=== PATIENT | male | born 2000 | race Caucasian/White ===

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

== ENCOUNTER → 2021-04-14 17:28 | Outpatient (CLI) | payer OTHER, SELFPAY ==
[2021-04-17 00:04] LABS: Neisseria gonorrhoeae, NAA Negative (Negative)
== END ==
PROVIDERS: Visit Provider Nurse Practitioner Family
DX: R36.9 Urethral discharge, unspecified (principal); N48.89 Other specified disorders of penis
CPT/HCPCS: 87491; 87591

== ENCOUNTER → 2021-09-18 13:08 | Outpatient (CLI) | payer OTHER, SELFPAY | PROVIDERS: Visit Provider Nurse Practitioner | DX: Z20.822 Contact with and (suspected) exposure to COVID-19 (principal) | CPT/HCPCS: C9803; U0003; U0005 ==

== ENCOUNTER 2021-09-23 11:42 | Emergency (ER) | payer SELFPAY ==
[2021-09-23 11:43] VITALS: BP 145/86; PULSE 80; RESP 16; TEMP 36.8; O2SAT 99; BMI 25.0
--- NOTE | 2021-09-23 11:48 | HMH.EDGENADL ---
ED Disposition Clinical Impression: Congestion of right ear Disposition: Home, Self-Care Condition on Discharge: Good Additional Instructions: Nasacort and pseudoephedrine as prescribed. Follow-up with your nose and throat, call for appointment. Prescriptions: Fluticasone Propionate [Flonase 50mcg nasal spray 16gm] 1 spr NS DAILY #1 unspec Transmission Status: Pending to [facility] # Pseudoephedrine HCl [Pseudoephedrine ER] 120 mg PO DAILY #10 tab Transmission Status: Pending to [facility] # Referrals: Jose Brown MD [Primary Care Provider] - Jamey Livingston MD [Physician] - - Critical Care Critical Care Time: No Attestation: On 09/23/21, the high probability of a clinically significant, sudden or life threatening deterioration of the following system(s) required my full and direct attention, intervention and personal management. The time I documented below is in addition to time spent performing reported procedures but includes the following listed in this critical care notation. Medical Decision Making - Medical Records Medical records reviewed: Yes: I reviewed the patient's medical records. MR Comment: Covid testing done on 09/18/2021 was negative, patient informed. - Garrett Inquiry Pt receiving controlled substance: No Vital Signs: 09/23/21 11:43 Temperature 98.2 F Temperature Source Oral Pulse Rate [Left Radial] 80 Respiratory Rate 16 Blood Pressure [Right Arm] 145/86 H Blood Pressure Mean [Right Arm] 105 02 Sat by Pulse Oximetry 99 Oxygen Delivery Method Room Air General Adult HPI - General Stated complaint: ear pain, muffled sound Time Seen by Provider: 09/23/21 11:48 - History of Present Illness HPI narrative: 1 week history of muffled hearing and pressure sensation in his right ear. States that he has had this in the past and seen his primary care provider and had to have his ear canal clogged out. He does not know whether that is the problem now. Denies rhinorrhea. He does have some postnasal drip. He says that when he auto equalizes the pressure in his right ear he can feel a pop but it does not seem to help. No fever. Also states that he had a Covid test done here a few days ago because of Covid exposure and does not know the result. - Related Data Home Medications Medication Instructions Recorded Confirmed Loratadine/Pseudoephedrine 1 each PO DAILY 07/31/20 07/31/20 [Loratadine-D 24Hr Tablet] Previous Rx's Medication Instructions Recorded Fluticasone Propionate [Flonase 1 spr NS DAILY #1 unspec 09/23/21 50mcg nasal spray 16gm] Pseudoephedrine HCl 120 mg PO DAILY #10 tab 09/23/21 [Pseudoephedrine ER] Allergies Allergy/AdvReac Type Severity Reaction Status Date / Time POISON ALPHONSO EXTRACT, ALUM Allergy Mild I-RASH Uncoded 10/29/19 14:59 [facility]AT [facility] History - Hepatitis A Screen Attestation statement:: This patient has been screened for Hepatitis A risk factors. I have reviewed the patient's past medical history: Yes Medical History: Denies:: Cancer, Diabetes Mellitus Type 1, Diabetes Mellitus Type 2, Internal Pacemaker, MRSA Other Surgeries: Yes: No Previous Surgery. No: Pacemaker Amputation: No Fractures: No - Social History Smoking Status: Never smoker Tobacco Type: cigarettes # Packs/Day (cigarettes): 1 Alcohol Intake: never Substance Use Type: denies use Occupational Status: employed Family Hx:: No significant family history ROS Obtained: Yes Systems reviewed as appropriate & no additional complaints - Constitutional Constitutional: Denies fever(s) - ENT Ears, Nose, Mouth, and Throat: Reports as per HPI, Denies nasal discharge, Reports post nasal drip, Denies sinus pain, Denies sore throat Physical Exam - General General appearance: alert, in no apparent distress - Head Head exam: atraumatic, normocephalic - Eye Eye exam: Present: normal appearance, EOMI - ENT EN
[2021-09-23 12:11] VITALS: BP 132/70; PULSE 84; RESP 16; TEMP 36.8; O2SAT 99
== END 2021-09-23 12:12 | disposition home or self-care (01) ==
PROVIDERS: Emergency Provider Emergency Medicine; PCP Internal Medicine Adolescent Medicine
DX: H93.8X1 Other specified disorders of right ear (principal); H92.01 Otalgia, right ear; F17.210 Nicotine dependence, cigarettes, uncomplicated
CPT/HCPCS: 99281

== ENCOUNTER 2022-10-04 19:39 | Emergency (ER) | payer SELFPAY ==
--- NOTE | 2022-10-04 19:46 | HMH.EDGENADL ---
Discharge Plan Prescriptions Prescriptions: No Action loratadine-pseudoephedrine 1 EACH tablet extended release 24 hr 1 each PO DAILY fluticasone propionate 120 SPR/BOT bottle 1 spr NS DAILY Qty: 1 0RF pseudoephedrine HCl 120 MG tablet extended release 120 mg PO DAILY Qty: 10 0RF Referrals Follow up/Referrals: Jose Brown MD [Primary Care Provider] - See instructions Discharge ED Provider: Sesar Zuleta General Adult HPI General Stated complaint: Right ear pain/muffeled Time Seen by Provider: 10/04/22 19:46 History of Present Illness HPI narrative: Patient decided prior to my evaluation that he would not want to be seen in the ED that he would come to urgent treatment clinic tomorrow therefore did not see the patient Related Data Home Medications Medication Instructions Recorded Confirmed loratadine-pseudoephedrine ER 10 1 each PO DAILY Allergy symptoms 07/31/20 07/31/20 mg-240 mg tablet,extended [id number] Previous Rx's Medication Instructions Recorded fluticasone propionate 50 1 spr NS DAILY ##1 09/23/21 mcg/actuation nasal spray,suspension pseudoephedrine HCl 120 mg 120 mg PO DAILY #10 tabs 09/23/21 tablet,extended release Allergies Allergy/AdvReac Type Severity Reaction Status Date / Time POISON ALPHONSO EXTRACT, ALUM Allergy Mild I-RASH Uncoded 10/29/19 14:59 [facility]IPITAT [facility] Disclaimer: The information contained in this section may have been updated after the patient was seen, as this information can be updated by other users. Social History Smoking Status: Never smoker alcohol intake: never substance use type: denies use current occupational status: employed Travel in the last 8 weeks: None ROS Obtained: Yes other Physical Exam General General appearance: other Respiratory Respiratory exam: Present other Cardiovascular Cardiovascular exam: Present other Neurological Exam Neurological exam: Present other Medical Decision Making Garrett Inquiry Pt receiving controlled substance: No Critical Care Time Critical Care Time Critical Care Time: No Attestation: On 10/04/22, the high probability of a clinically significant, sudden or life threatening deterioration of the following system(s) required my full and direct attention, intervention and personal management. The time I documented below is in addition to time spent performing reported procedures but includes the following listed in this critical care notation.
--- NOTE | 2022-10-04 19:49 | PC.NURSE ---
pt decided to leave and come back tomorrow to the [facility]. He was offered to immediately come back to ER, however pt refused and registration is unable to take pt off since he did register.
[2022-10-04 19:51] VITALS: BP 0/0; PULSE 0; RESP 0; TEMP -17.7; TEMP 0
== END 2022-10-04 19:52 | disposition left against medical advice (07) ==
PROVIDERS: Emergency Provider Student in an Organized Health Care Education/Training Program; PCP Internal Medicine Adolescent Medicine
DX: Z53.21 Procedure and treatment not carried out due to patient leaving prior to being seen by health care provider (principal); H92.01 Otalgia, right ear
CPT/HCPCS: 99211

== ENCOUNTER 2022-10-05 17:47 | Emergency (ER) | payer SELFPAY ==
[2022-10-05 18:50] VITALS: BP 138/83; PULSE 76; RESP 20; TEMP 36.7; O2SAT 98; BMI 28.1
--- NOTE | 2022-10-05 19:23 | EXP.UTC ---
Discharge Plan Disposition Patient Disposition: Home, Self-Care Condition: Good Prescriptions Prescriptions: New amoxicillin [amoxicillin] 875 mg tablet 875 mg PO Q12H Qty: 20 0RF methylprednisolone 4 mg Tablets,Dose Pack 4 mg PO DIRECTED Qty: 21 0RF No Action loratadine-pseudoephedrine 1 EACH tablet extended release 24 hr 1 each PO DAILY fluticasone propionate 120 SPR/BOT bottle 1 spr NS DAILY Qty: 1 0RF pseudoephedrine HCl 120 MG tablet extended release 120 mg PO DAILY Qty: 10 0RF Referrals Follow up/Referrals: Jose Brown MD [Primary Care Provider] - See instructions Activity Restrictions/Add. Instructions Additional Instructions/Restrictions: Drink plenty of fluids. Take tylenol or ibuprofen for pain or fever. Take the medications as directed. Follow up with your regular doctor. GO TO THE ER FOR ANY WORSENING SYMPTOMS Clinical Impressions Clinical Impression: Otitis media Instructions Patient Instructions: Middle Ear Infection Discharge ED Provider: Vijay Goodman [facility] General Stated complaint: right ear pain Time Seen by Provider: 10/05/22 19:23 History of Present Illness Provider Complaint: He states that for the past 4 days he has had ear pain. His right hurts worse than his left. He was having cough, sinus congestion and low grade fever last week. But those symptoms have resolved and now all he has is ear pain. Related Data Home Medications Medication Instructions Recorded Confirmed loratadine-pseudoephedrine ER 10 1 each PO DAILY Allergy symptoms 07/31/20 07/31/20 mg-240 mg tablet,extended [id number] Previous Rx's Medication Instructions Recorded fluticasone propionate 50 1 spr NS DAILY ##1 09/23/21 mcg/actuation nasal spray,suspension pseudoephedrine HCl 120 mg 120 mg PO DAILY #10 tabs 09/23/21 tablet,extended release amoxicillin 875 mg tablet 875 mg PO Q12H #20 tabs 10/05/22 methylprednisolone 4 mg tablets in 4 mg PO DIRECTED #21 tabs 10/05/22 a dose pack Allergies Allergy/AdvReac Type Severity Reaction Status Date / Time POISON ALPHONSO EXTRACT, ALUM Allergy Mild I-RASH Uncoded 10/29/19 14:59 [facility]IP[facility]AT [facility] Disclaimer: The information contained in this section may have been updated after the patient was seen, as this information can be updated by other users. Social History Smoking Status: Never smoker alcohol intake: never substance use type: denies use current occupational status: employed Travel in the last 8 weeks: None ROS Obtained: Yes All systems reviewed & no additional complaints except as documented Constitutional Constitutional: Denies chills and Denies fever(s) Eyes Eyes: Denies eye discharge ENT Ears, Nose, Mouth, and Throat: Denies ear discharge, Reports otalgia, Denies hearing loss, Denies sinus pain and Reports sore throat Cardiovascular Cardiovascular: Denies chest pain and Denies dyspnea Respiratory Respiratory: Denies chest congestion, Reports cough and Denies dyspnea Gastrointestinal Gastrointestingal: Denies abdominal pain, diarrhea, nausea or vomiting Musculoskeletal Musculoskeletal: Denies arthralgias Integumentary/Breasts Skin/Breast: Denies redness, Denies rash and Denies wounds Neurologic Neurologic: Denies paresthesias Physical Exam General General appearance: alert and in no apparent distress Head Head exam: atraumatic, normocephalic and normal inspection Eye Eye exam: Present normal appearance; Absent PERRL or EOMI ENT ENT exam: Present mucous membranes moist and normal external ear exam Expanded ENT Exam TM/Canal exam: Bilateral TM: erythema, bulging and effusion Nose exam: Absent sinus tenderness Nasal speculum exam: Bilateral: normal Mouth exam: Present normal external inspection and other; Absent drooling Teeth exam: Present normal inspection Throat exam: Present tonsillar erythema and
[2022-10-05 19:50] VITALS: BP 138/83; PULSE 76; RESP 20; TEMP 36.7; O2SAT 98
== END 2022-10-05 19:50 | disposition home or self-care (01) ==
PROVIDERS: Emergency Provider Nurse Practitioner Family; PCP Internal Medicine Adolescent Medicine
DX: H66.90 Otitis media, unspecified, unspecified ear (principal)
CPT/HCPCS: 99212; 99213; G0463

== ENCOUNTER 2023-09-10 10:26 | Emergency (ER) | payer SELFPAY ==
[2023-09-10 10:26] VITALS: BP 118/72; PULSE 81; RESP 18; TEMP 36.8; O2SAT 100; BMI 28.1
--- NOTE | 2023-09-10 10:26 | PC.NURSE ---
101[address] Tra[address] Dr[address] Alvarenga at [facility]
--- NOTE | 2023-09-10 10:26 | PC.NURSE ---
RAD at [facility] for XRAY
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
[2023-09-10 10:48] VITALS: BMI 28.1
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
[2023-09-10 11:03] LABS: Chloride 107 mmol/L (98-107); Potassium 4.4 mmoL/L (3.5-5.1); Sodium 138 mmol/L (136-145)
[2023-09-10 11:05] LABS: Basophils # 0.1 K/mm3 (0-0.2); Eosinophils # 0.5 K/mm3 (0.0-0.4); Eosinophils % 5.7 % (0.1-12.0); Hemoglobin 16.1 g/dL (14.1-18.0); Lymphocytes # 2.6 K/mm3 (0.7-4.5); Lymphocytes % 28.2 % (10-50); Mean Corpuscular HGB Conc 34.3 g/dL (31.8-35.4); Mean Corpuscular Hemoglobin 31.1 pg (27.0-31.2); Mean Corpuscular Volume 90.7 fl (80-94); Mean Platelet Volume 8.5 fl (7.4-10.4); Monocytes # 0.7 K/mm3 (0.1-1.0); Monocytes % 7.6 % (1.7-9.3); Neutrophils # 5.3 K/mm3 (1.8-7.8); Neutrophils % 57.6 % (37.0-80.0); Platelet Count 267 K/mm3 (142-424); Red Blood Count 5.19 M/mm3 (4.60-6.20); Red Cell Distribution Width 12.7 % (11.5-17.5); White Blood Count 9.2 K/mm3 (4.8-10.8)
[2023-09-10 11:06] LABS: Alanine Aminotransferase 31 U/L (12-78); Albumin Level 4.2 g/dl (3.5-5.0); Albumin/Globulin Ratio 1.3 (1.1-1.8); Alkaline Phosphatase 26 U/L (38-126); Anion Gap 13.4 mEq/L (5-15); Aspartate Amino Transferase 38 U/L (17-59); Bilirubin,Total 0.7 mg/dl (0.2-1.3); Blood Urea Nitrogen 15 mg/dl (9-20); Carbon Dioxide 22 mmol/L (22.0-30.0); Creatinine Clearance Estimated 198 mL/min (50-200); Estimated Glomerular Filt Rate 142 ml/min (>60); GFR (African American) 172 ML/MIN (>60); Globulin 3.3 g/dL (1.3-3.2); Total Protein,Serum 7.5 g/dl (6.3-8.2)
[2023-09-10 11:07] LABS: Calcium 8.7 mg/dl (8.4-10.2); Glucose 98 mg/dl (74-100)
--- NOTE | 2023-09-10 11:16 | PC.NURSE ---
Patient to RAD for CT
--- NOTE | 2023-09-10 11:16 | PC.NURSE ---
PT gone to RAD via stretcher
[2023-09-10] MEDS: 0.9 % SODIUM CHLORIDE 50 ML VIAL IV (11:38)
[2023-09-10] MEDS: IOPAMIDOL-370 (76%);100ML BOTTLE 100 ML IV (11:40)
[2023-09-10] MEDS: SODIUM CHLORIDE 0.9% 10ML SYR (RAD ONLY) 10 ML IV (11:40)
--- NOTE | 2023-09-10 11:46 | PC.NURSE ---
Pt back in room from RAD
[2023-09-10 11:54] VITALS: BP 119/73; PULSE 77; O2SAT 98
--- NOTE | 2023-09-10 12:10 | PC.NURSE ---
Rounded on pt. No needs voiced at this time. Call light within reach.
--- NOTE | 2023-09-10 12:25 | PC.NURSE ---
Dr. Alvarenga at BS to update pt on results and POC
--- NOTE | 2023-09-10 12:25 | PC.NURSE ---
DR WHYTE AT BEDSIDE TO UPDATE PT AND FAMILY
[2023-09-10 12:42] VITALS: BP 111/74; PULSE 82; RESP 18; TEMP 36.8; O2SAT 99
== END 2023-09-10 12:45 | disposition home or self-care (01) ==
PROVIDERS: Emergency Provider Emergency Medicine; PCP Internal Medicine Adolescent Medicine
DX: M25.511 Pain in right shoulder (principal); M47.817 Spondylosis without myelopathy or radiculopathy, lumbosacral region; V48.5XXA Car driver injured in noncollision transport accident in traffic accident, initial encounter; Y92.410 Unspecified street and highway as the place of occurrence of the external cause
CPT/HCPCS: 70450; 71045; 71275; 72125; 72128; 72131; 72170; 73030; 74174; 80053; 85025; 99285; Q9967

== ENCOUNTER 2024-08-16 14:56 | Emergency (ER) | payer MEDICAID, SELFPAY ==
--- NOTE | 2024-08-16 15:47 | EXP.UTC ---
Discharge Plan Disposition Patient Disposition: Home, Self-Care Condition: Good Prescriptions Prescriptions: New methylprednisolone 4 mg Tablets,Dose Pack 4 mg PO DIRECTED 6 Days Qty: 21 0RF Rx Instructions: Take 1 pack as directed for 6 days [id number] [Bromfed DM] 2-30-10 mg/5 mL Syrup 5 ml PO Q6H PRN (Reason: Cough) Qty: 240 0RF amoxicillin-pot clavulanate 875-125 mg Tablet 1 tab PO Q12H Qty: 20 0RF No Action albuterol sulfate 90 mcg/actuation HFA aerosol inhaler 2 puff inhalation Q4-6H PRN (Reason: shortness of breath or wheezing) Qty: 8.5 0RF Referrals Follow up/Referrals: Jose Brown MD [Primary Care Provider] - See instructions Activity Restrictions/Add. Instructions Additional Instructions/Restrictions: Drink plenty of fluids. Take tylenol or ibuprofen for pain or fever. Take the medications as directed. Follow up with your regular doctor. GO TO THE ER FOR ANY WORSENING SYMPTOMS Clinical Impressions Clinical Impression: Acute bronchitis Stand Alone Forms Stand Alone Forms: Work/School Release Instructions Patient Instructions: DI for Acute Bronchitis Print Language Print Language: Amharic Discharge ED Provider: Vijay Goodman [facility] HPI General Stated complaint: fever, rosina, diff brathing sore throat Time Seen by Provider: 08/16/24 15:47 Related Data Previous Rx's ?Medication ?Instructions ?Recorded albuterol sulfate 90 mcg/actuation 2 puff inhalation Q4-6H PRN 04/23/24 aerosol inhaler shortness of breath or wheezing #8.5 grams amoxicillin 875 mg-potassium 1 tab PO Q12H #20 tabs 08/16/24 clavulanate 125 mg tablet tghbyclouqtedtt-yvaasnkviiwlcqy-EP 5 ml PO Q6H PRN Cough #240 mL 08/16/24 2 mg-30 mg-10 mg/5 mL oral syrup (Bromfed DM) methylprednisolone 4 mg tablets in 4 mg PO DIRECTED 6 days #21 tabs 08/16/24 a dose pack Allergies Allergy/AdvReac Type Severity Reaction Status Date / Time POISON ALPHONSO EXTRACT, ALUM Allergy Intermediate I-RASH Uncoded 05/01/24 13:28 [facility] Disclaimer: The information contained in this section may have been updated after the patient was seen, as this information can be updated by other users. Social History Smoking Status: Never smoker alcohol intake: never substance use type: denies use current occupational status: employed Travel in the last 8 weeks: None Have you lived/traveled outside [place] in past 30 days?: No Contact w/someone who lives/traveled outside [place] past 30 days?: No Exposure to someone with infectious disease in past 14 days?: No Do you have a fever (greater than 100.4 F or 38 C)?: Yes Have you tested positive for COVID-19: No Exposed to someone with COVID-19 in past 14 days?: No Do you have a sore throat?: Yes Do you have a cough?: Yes Do you have any weakness?: No Do you have any diarrhea?: No Are you experiencing any unusual bleeding?: No Do you have any muscle aches/pain?: No Do you have any abdominal pain?: No Are you experiencing loss of taste or smell?: No ROS Obtained: Yes All systems reviewed & no additional complaints except as documented Constitutional Constitutional: Reports poor appetite Eyes Eyes: Reports system reviewed and no additional complaints, except as documented ENT Ears, Nose, Mouth, and Throat: Reports as per HPI Cardiovascular Cardiovascular: Reports system reviewed and no additional complaints, except as documented and Denies chest pain Respiratory Respiratory: Denies shortness of breath, Reports chest congestion, Reports cough, Denies stridor and Denies wheezing Gastrointestinal Gastrointestingal: Reports system reviewed and no additional complaints, except as documented; Denies abdominal pain, diarrhea or vomiting Musculoskeletal Musculoskeletal: Reports system reviewed and no additional complaints, except as documented and Denies arthralgias Integumentary/Breasts Skin/Breast: Reports system reviewed and no additional complaints, except as documented and Denies rash Neurologic Neurologic: Denies paresthesias Allergic/Immunologic Allergic/Immunologic: Denies wheezing Physical Exam General General appearance: alert and in no apparent distress Eye Eye exam: Present normal appearance, PERRL and EOMI ENT ENT exam: Present mucous membranes moist and normal external ear exam Expanded ENT Exam External ear exam: Present normal external inspection TM/Canal exam: Bilateral TM: erythema and bulging Nose exam: Absent sinus tenderness Nasal speculum exam: Bilateral: normal Mouth exam: Present normal external inspection; Absent drooling Teeth exam: Present normal inspection Throat exam: Present tonsillar erythema and tonsillomegaly Neck Neck exam: Present normal inspection, full ROM and trachea midline; Absent tenderness, lymphadenopathy or thyromegaly Chest Chest inspection: Present normal inspection and symmetric chest wall rise; Absent tenderness or rash Respiratory Respiratory exam: Present normal lung sounds bilaterally; Absent respiratory distress, wheezes, stridor or accessory muscle use Cardiovascular Cardiovascular exam: Present regular rate, normal rhythm and normal heart sounds Abdominal Exam Abdominal exam: Present soft; Absent distention, tenderness, guarding, rebound or rigidity Extremities Exam Extremities exam: Present normal inspection, full ROM and normal capillary refill; Absent tenderness or calf tenderness Back Exam Back exam: Present normal inspection and full ROM; Absent tenderness Neurological Exam Neurological exam: Present alert and oriented X3 Psychiatric Psychiatric exam: Present normal affect and normal mood Skin Skin exam: Present warm, dry, intact and normal color Lymphatic Lymphatic Findings: no adenopathy Medical Decision Making Medical Records Medical records reviewed: No I reviewed the patient's medical records. Screening: Per USPSTF and CDC recommendations, given the prevalence of disease in our region, it is our hospital?s policy to screen for HIV and viral Hepatitis for all patients aged 18 and over and those with ongoing risk factors. Garrett Inquiry Pt receiving controlled substance: No Lab Data Lab results reviewed: Yes I reviewed the patient's lab results.
[2024-08-16 15:49] VITALS: BP 129/70; PULSE 101; RESP 20; TEMP 36.9; O2SAT 98; BMI 30.2
[2024-08-16 15:58] LABS: UTC Strep Screen (Rapid) Negative (Negative)
[2024-08-16 16:27] LABS: UTC Influenza A Antigen Negative (Negative); UTC Influenza B Antigen Negative (Negative)
[2024-08-16 16:52] VITALS: BP 129/70; PULSE 101; RESP 20; TEMP 36.9
== END 2024-08-16 16:56 | disposition home or self-care (01) ==
PROVIDERS: Emergency Provider Nurse Practitioner Family; PCP Internal Medicine Adolescent Medicine
DX: J20.9 Acute bronchitis, unspecified (principal)
CPT/HCPCS: 87804; 87880; 99213; G0381

== ENCOUNTER 2024-10-01 17:28 | Emergency (ER) | payer MEDICAID, SELFPAY ==
--- NOTE | 2024-10-01 19:21 | EXP.UTC ---
Discharge Plan Disposition Patient Disposition: Home, Self-Care Condition: Good Prescriptions Prescriptions: New azithromycin [Zithromax] 250 mg tablet 250 mg PO UD DOSE PK Qty: 6 0RF Rx Instructions: Take two (2) tablets today, then one (1) tablet days #2 thru #5 methylprednisolone 4 mg Tablets,Dose Pack 4 mg PO DIRECTED 6 Days Qty: 21 0RF Rx Instructions: Take 1 pack as directed for 6 days tzujirsfngopike-xxklokdnn-ST [Bromfed DM] 2-30-10 mg/5 mL Syrup 5 ml PO Q6H PRN (Reason: Cough) Qty: 240 0RF Referrals Follow up/Referrals: Jose Brown MD [Primary Care Provider] - See instructions Activity Restrictions/Add. Instructions Additional Instructions/Restrictions: Drink plenty of fluids. Take tylenol or ibuprofen for pain or fever. Take the medications as directed. Follow up with your regular doctor. GO TO THE ER FOR ANY WORSENING SYMPTOMS Clinical Impressions Clinical Impression: Acute bronchitis, Acute viral syndrome Instructions Patient Instructions: DI for Acute Bronchitis Print Language Print Language: Bulgarian Discharge ED Provider: Vijay Goodman [facility] General Stated complaint: Cough,fever 99.5,runny nose,diarrhea Time Seen by Provider: 10/01/24 19:21 Related Data Previous Rx's ?Medication ?Instructions ?Recorded azithromycin 250 mg tablet 250 mg PO UD DOSE PK #6 tabs 10/01/24 (Zithromax) cdiaxnpxyjdskmq-zyznwglrkemffab-ZL 5 ml PO Q6H PRN Cough #240 mL 10/01/24 2 mg-30 mg-10 mg/5 mL oral syrup (Bromfed DM) methylprednisolone 4 mg tablets in 4 mg PO DIRECTED 6 days #21 tabs 10/01/24 a dose pack Allergies Allergy/AdvReac Type Severity Reaction Status Date / Time POISON ALPHONSO EXTRACT, ALUM Allergy Intermediate I-RASH Uncoded 05/01/24 13:28 [facility] Disclaimer: The information contained in this section may have been updated after the patient was seen, as this information can be updated by other users. Social History Smoking Status: Never smoker alcohol intake: never substance use type: denies use current occupational status: employed Travel in the last 8 weeks: None Have you lived/traveled outside [place] in past 30 days?: No Contact w/someone who lives/traveled outside [place] past 30 days?: No Exposure to someone with infectious disease in past 14 days?: No Do you have a fever (greater than 100.4 F or 38 C)?: No Have you tested positive for COVID-19: No Exposed to someone with COVID-19 in past 14 days?: No Do you have a sore throat?: Yes Do you have a cough?: Yes Do you have any weakness?: No Do you have any diarrhea?: Yes Are you experiencing any unusual bleeding?: No Do you have any muscle aches/pain?: No Do you have any abdominal pain?: No Are you experiencing loss of taste or smell?: No ROS Obtained: Yes All systems reviewed & no additional complaints except as documented Constitutional Constitutional: Reports chills and Reports fever(s) Eyes Eyes: Denies eye discharge ENT Ears, Nose, Mouth, and Throat: Reports as per HPI Cardiovascular Cardiovascular: Denies chest pain Respiratory Respiratory: Denies chest congestion and Reports cough Gastrointestinal Gastrointestingal: Reports nausea; Denies abdominal pain, constipation, cramping, diarrhea or vomiting Musculoskeletal Musculoskeletal: Denies arthralgias Integumentary/Breasts Skin/Breast: Denies rash Neurologic Neurologic: Denies paresthesias Physical Exam General General appearance: alert and in no apparent distress Head Head exam: atraumatic, normocephalic and normal inspection Eye Eye exam: Present normal appearance, PERRL and EOMI ENT ENT exam: Present mucous membranes moist and normal external ear exam Expanded ENT Exam TM/Canal exam: Bilateral TM: erythema and bulging Nose exam: Absent sinus tenderness Mouth exam: Present normal external inspection; Absent drooling Teeth exam: Present normal inspection Throat exam: Present tonsillar erythema, tonsillomegaly and tonsillar exudate Neck Neck exam: Present normal inspection, full ROM and trachea midline; Absent tenderness, meningismus or lymphadenopathy Chest Chest inspection: Present normal inspection and symmetric chest wall rise; Absent tenderness Respiratory Respiratory exam: Present normal lung sounds bilaterally; Absent respiratory distress, wheezes, stridor or accessory muscle use Cardiovascular Cardiovascular exam: Present regular rate and normal rhythm; Absent systolic murmur or diastolic murmur Abdominal Exam Abdominal exam: Present soft and normal bowel sounds; Absent distention, tenderness, guarding, rebound or rigidity Extremities Exam Extremities exam: Present normal inspection and normal capillary refill; Absent calf tenderness Back Exam Back exam: Present normal inspection and full ROM; Absent tenderness, CVA tenderness (R) or CVA tenderness (L) Neurological Exam Neurological exam: Present alert, oriented X3 and CN II-XII intact Psychiatric Psychiatric exam: Present normal affect and normal mood Skin Skin exam: Present warm, dry, intact and normal color Medical Decision Making Medical Records Medical records reviewed: No I reviewed the patient's medical records. Screening: Per USPSTF and CDC recommendations, given the prevalence of disease in our region, it is our hospital?s policy to screen for HIV and viral Hepatitis for all patients aged 18 and over and those with ongoing risk factors. [place] Inquiry Pt receiving controlled substance: No Lab Data Lab results reviewed: Yes I reviewed the patient's lab results.
[2024-10-01 19:22] VITALS: BP 133/91; PULSE 77; RESP 18; TEMP 36.9; O2SAT 97; BMI 29.6
[2024-10-01 19:52] VITALS: BP 133/91; PULSE 77; RESP 18; TEMP 36.9
[2024-10-01 19:58] LABS: Coronavirus 19, PCR Not Detected (NotDetected); Influenza A, PCR Not Detected (NotDetected); Influenza B, PCR Not Detected (NotDetected)
== END 2024-10-01 19:57 | disposition home or self-care (01) ==
PROVIDERS: Emergency Provider Nurse Practitioner Family; PCP Internal Medicine Adolescent Medicine
DX: J20.9 Acute bronchitis, unspecified (principal); B34.9 Viral infection, unspecified
CPT/HCPCS: 87636; 99213; G0381

== ENCOUNTER 2024-12-20 15:49 | Outpatient (CLI) | payer MEDICAID, SELFPAY ==
[2024-12-20 15:56] LABS: Lyme Ab IgM CIA ND; Lyme IgG CIA ND
[2024-12-20 16:21] LABS: Basophils # 0.1 K/mm3 (0-0.2); Basophils % 1.2 % (0.1-2.0); Eosinophils # 0.8 Kmm3 (0.0-0.4); Eosinophils % 7.8 % (0.1-12.0); Hematocrit 44.6 % (42.0-52.0); Hemoglobin 15.3 g/dL (14.1-18.0); Lymphocytes # 2.3 K/mm3 (0.7-4.5); Lymphocytes % 23.5 % (10-50); Mean Corpuscular HGB Conc 34.3 g/dL (31.8-35.4); Mean Corpuscular Hemoglobin 30.2 pg (27.0-31.2); Mean Corpuscular Volume 88.1 fl (80-94); Mean Platelet Volume 10.4 fl (7.4-10.4); Monocytes % 10.4 % (1.7-9.3); Neutrophils # 5.5 K/mm3 (1.8-7.8); Neutrophils % 56.8 % (37.0-80.0); Nucleated Red Blood Cells # 0 10^3/uL; Nucleated Red Blood Cells % 0 %; Platelet Count 308 K/mm3 (142-424); Red Blood Count 5.06 M/mm3 (4.60-6.20); Red Cell Distribution Width 12.5 % (11.5-17.5); Red Cell Distribution Width-SD 40.1 fL; White Blood Count 9.8 K/mm3 (4.8-10.8)
[2024-12-20 17:32] LABS: Alanine Aminotransferase 58 U/L (12-78); Albumin/Globulin Ratio 1.3 (1.1-1.8); Alkaline Phosphatase 55 U/L (38-126); Anion Gap 12.3 mEq/L (5-15); Aspartate Amino Transferase 31 U/L (17-59); Bilirubin,Total 0.4 mg/dl (0.2-1.3); Blood Urea Nitrogen 12 mg/dl (9-20); Calcium 9.5 mg/dl (8.4-10.2); Carbon Dioxide 30 mmol/L (22.0-30.0); Chloride 101 mmol/L (98-107); Estimated Glomerular Filt Rate 140 ml/min (>60); GFR (African American) 169 ML/MIN (>60); Glucose 83 mg/dl (74-100); Potassium 4.3 mmoL/L (3.5-5.1); Sodium 139 mmol/L (136-145)
[2024-12-21 16:36] LABS: Lyme Ab CIA Negative (Negative)
== END 2024-12-20 23:59 | disposition home or self-care (01) ==
PROVIDERS: PCP Internal Medicine Adolescent Medicine; Visit Provider Nurse Practitioner
DX: R06.02 Shortness of breath (principal); R05.9 Cough, unspecified; W57.XXXA Bitten or stung by nonvenomous insect and other nonvenomous arthropods, initial encounter
CPT/HCPCS: 36415; 80053; 85025; 86618; 87070; 87116; 87186; 87205; 87206

== ENCOUNTER 2025-01-09 09:01 | Outpatient (CLI) | payer MEDICAID, SELFPAY ==
--- NOTE | 2025-01-09 08:45 | CT_ITS ---
FINAL REPORT TECHNIQUE: Routine axial images were obtained from the lung apices to below the diaphragm following IV contrast administration. Individualized dose reduction techniques using automated exposure control or adjustment of the mA and/or kV according to the patient size were employed. CLINICAL HISTORY: CT chest with IV contrast - bronchitis, cough, SOB COMPARISON: CTA chest 09/10/2023 FINDINGS: The mediastinal vasculature is adequately opacified. No pulmonary artery filling defects are noted. No pleural or pericardial effusion is seen. No adenopathy. No evidence of mass. Again seen is a small pleural-based nodule along the anterior minor fissure measuring 4 mm and well-seen on image 34 series 2, stable. Limited images of the upper abdomen demonstrate no acute findings. IMPRESSION: No pulmonary embolism. Stable nodule. Reviewed, Interpreted and Dictated by Ishmael Fernández MD Transcribed by Krista King Authenticated and [facility]
[2025-01-09] MEDS: SODIUM CHLORIDE 0.9% 10ML SYR (RAD ONLY) 10 ML IV (09:19)
[2025-01-09] MEDS: IOPAMIDOL-370 (76%);100ML BOTTLE 75 ML IV (09:19)
== END 2025-01-09 23:59 | disposition home or self-care (01) ==
LOC: RAD 09:02
PROVIDERS: PCP Internal Medicine Adolescent Medicine; Visit Provider Nurse Practitioner
DX: R91.1 Solitary pulmonary nodule (principal); J40 Bronchitis, not specified as acute or chronic
CPT/HCPCS: 71260; Q9967

== ENCOUNTER 2025-07-22 15:55 | Outpatient (CLI) | payer SELFPAY ==
[2025-07-22 20:51] LABS: Coronavirus 19, PCR Not Detected (NotDetected); Influenza A, PCR Not Detected (NotDetected); Influenza B, PCR Not Detected (NotDetected)
== END 2025-07-22 23:59 | disposition home or self-care (01) ==
LOC: LAB.DROPOF 07-23 10:41
PROVIDERS: PCP Internal Medicine Adolescent Medicine; Visit Provider Nurse Practitioner
DX: J06.9 Acute upper respiratory infection, unspecified (principal)
CPT/HCPCS: 87631

== ENCOUNTER 2025-07-23 15:04 | Outpatient (CLI) | payer SELFPAY ==
--- NOTE | 2025-07-23 15:06 | XR_ITS ---
FINAL REPORT CLINICAL HISTORY: chest congestion COMPARISON: 09/10/2023 FINDINGS: PA and lateral views of the chest were obtained. The cardiac and mediastinal silhouettes are within normal limits. The lungs are clear. There is no pleural effusion or pneumothorax. No acute osseous abnormality is identified. IMPRESSION: No radiographic evidence of acute cardiac or pulmonary disease. Reviewed, Interpreted and Dictated by Yasmine Westbrook MD Transcribed by Denice Alberto Authenticated and [facility]
== END 2025-07-23 23:59 | disposition home or self-care (01) ==
LOC: RAD 15:05
PROVIDERS: PCP Nurse Practitioner; Visit Provider Nurse Practitioner
DX: R09.89 Other specified symptoms and signs involving the circulatory and respiratory systems (principal)
CPT/HCPCS: 71046